=== PATIENT | female | born 1990 | race African-American/Black ===

== ENCOUNTER 2017-09-30 07:27 | Emergency (ER) | payer BC, MEDICAID ==
[~2017-09-30] VITALS: Ht 167.6 cm; Wt 73.0 kg
[~2017-09-30 07:27] MED LIST: CLAR10TA7 PO; ERYT.5%O EACH EYE; ZITH250T PO
[2017-09-30 07:29] VITALS: BP 130/76; PULSE 78; RESP 16; TEMP 98.6; O2SAT 100
[2017-09-30] MEDS ORDERED: ZOFR4TAB PO ×2 (07:37→07:51)
[2017-09-30] MEDS ORDERED: ZITHTAB PO (07:51)
--- NOTE | 2017-09-30 07:51 | PD ---
HPI Chief Complaint: GI Complaint Time Seen by Provider: 07:48 Travel History International Travel<30 days: No Contact w/Intl Traveler<30days: No Traveled to known affect area: No History of Present Illness HPI Patient presents with complaints of sore throat with associated nausea and occasional vomiting for 3 days. Denies . Patient was given a Zofran at work with control of her nausea and vomiting. Denies fever. Non-smoker. Taking fluids well. PFSH Past Medical History Medical History: Denies Significant Hx Developmental Delay: No Diminished Hearing: No Immunizations Current: Yes Influenza Vaccination: No ?: Not LMP: 2 DAYS : 2 Para: 1 : 1 Past Surgical History Surgical History: No Previous Surgery Social History Alcohol Use: Yes (occas) Tobacco Use: No Substance Use: No Allergies-Medications (Allergen,Severity, Reaction): Coded Allergies: Fish Containing Products (Unverified Allergy, Severe, ANAPHALAXIS, 09/30/17 ) Reported Meds & Prescriptions Reported Meds & Active Scripts Active Reported Zofran (Ondansetron HCl) 4 Mg Tab 4 Mg PO Q6HR PRN Review of Systems General / Constitutional: No: Fever Eyes: No: Visual changes HENT: Positive: Sore Throat, No: Headaches Cardiovascular: No: Chest Pain or Discomfort Respiratory: No: Shortness of Breath Gastrointestinal: Positive: Nausea, Vomiting, No: Abdominal Pain Genitourinary: No: Dysuria Musculoskeletal: No: Pain Skin: No Rash Neurologic: No: Weakness Psychiatric: No: Depression Endocrine: No: Polydipsia Hematologic/Lymphatic: No: Easy Bruising Physical Exam Narrative GENERAL: Well-nourished, well-developed patient. SKIN: Focused skin assessment warm/dry. Throat erythematous mild adenopathy HEAD: Normocephalic. EYES: No scleral icterus. No injection or drainage. NECK: Supple, trachea midline. No JVD or lymphadenopathy. CARDIOVASCULAR: Regular rate and rhythm without murmurs, gallops, or rubs. RESPIRATORY: Breath sounds equal bilaterally. No accessory muscle use. GASTROINTESTINAL: Abdomen soft, non-tender, nondistended. MUSCULOSKELETAL: No cyanosis, or edema. BACK: Nontender without obvious deformity. No CVA tenderness. Data Data Last Documented VS Vital Signs Date Time Temp Pulse Resp B/P (MAP) Pulse Ox O2 Delivery O2 Flow Rate FiO2 09/30/17 07:29 98.6 78 16 130/76 (94) 100 [facility] Medical Decision Making Medical Screen Exam Complete: Yes Emergency Medical Condition: Yes Differential Diagnosis Pharyngitis, nausea vomiting, gastritis, gastroenteritis Narrative Course Assessment plan discussed patient at bedside. Patient Instructions: General Instructions Additional Instructions: Motrin or Tylenol for discomfort. Antibiotic and antiemetic as prescribed. Encourage fluids. Please provide work note. Follow-up with PCP. Return to emergency room with any onset of new symptoms. Med/Other Pt SpecificInfo: Prescription(s) given Scripts Ondansetron (Zofran) 4 Mg Tab 4 MG PO Q6HR Y for NAUSEA OR VOMITING, #15 TAB 0 Refills Prov: Koby Mabry MD 09/30/17 Azithromycin (Zithromax Z-Manav) 250 Mg Dspk 250 MG PO DIRECTED for Infection, #1 DSPK 0 Refills 500 MG (2 tabs) day 1, then 1 tab days 2-5. Prov: Koby Mabry MD 09/30/17 Disposition: 01 DISCHARGE HOME Condition: Good Koby Mabry MD Sep 30, 2017 07:51
== END 2017-09-30 08:09 | disposition home or self-care (01) ==
LOC: PHED 07:27
DX: J02.9 Acute pharyngitis, unspecified (principal); R11.2 Nausea with vomiting, unspecified
CPT/HCPCS: 99283

== ENCOUNTER 2017-10-26 15:41 | Emergency (ER) | END 2017-10-26 17:21 | disposition home or self-care (01) | DX: O26.899 Other specified pregnancy related conditions, unspecified trimester (principal); Z98.890 Other specified postprocedural states; Z3A.00 Weeks of gestation of pregnancy not specified ==

== ENCOUNTER 2017-11-06 08:55 | Emergency (ER) | payer OTHER, BC ==
[~2017-11-06] VITALS: Ht 167.6 cm; Wt 75.0 kg
[2017-11-06 08:59] VITALS: BP 121/52; PULSE 76; RESP 18; TEMP 98.4; O2SAT 100
[2017-11-06 09:09] VITALS: BP 106/58; PULSE 75; RESP 16; TEMP 98; O2SAT 100
[2017-11-06] MEDS ORDERED: ZOFR4TAB PO (09:09)
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
[2017-11-06] MEDS ORDERED: ACETAMINOPHEN 325 MG TAB PO ONE (09:30)
[2017-11-06 11:02] LABS: BACTERIA, URINE RARE /hpf; BILIRUBIN, URINE NEG (NEG); BLOOD, URINE NEG (NEG); GLUCOSE,URINE NEG (NEG); KETONE, URINE NEG (NEG); MUCUS URINE FEW /lpf (OCC); NITRITE,URINE NEG (NEG); PH, URINE 7.5 (5.0-8.5); SQUAMOUS EPITHELIAL CELL URINE 24 /hpf (0-5); URINE COLOR YELLOW (YELLW/STRAW); URINE LEUKOCYTE ESTERASE TRACE (NEG)
[2017-11-06 11:04] VITALS: RESP 15
== END 2017-11-06 11:29 | disposition home or self-care (01) ==
LOC: NEPD 08:55
DX: O9A.211 Injury, poisoning and certain other consequences of external causes complicating pregnancy, first trimester (principal); S13.4XXA Sprain of ligaments of cervical spine, initial encounter; V43.53XA Car driver injured in collision with pick-up truck in traffic accident, initial encounter; Z3A.08 8 weeks gestation of pregnancy
CPT/HCPCS: 81001; 99283